=== PATIENT | male | born 1975 | race Caucasian/White ===

== ENCOUNTER 2020-10-06 08:01 | Emergency (ER) | payer OTHER ==
[~2020-10-06] VITALS: Ht 165.1 cm; Wt 72.7 kg
[2020-10-06 08:03] VITALS: BP 136/92
[2020-10-06] MEDS ORDERED: IBUPROFEN 600 MG TABLET PO ONE (08:45)
== END 2020-10-06 08:44 | disposition home or self-care (01) ==
LOC: EMS 08:04
DX: S46.811A Strain of other muscles, fascia and tendons at shoulder and upper arm level, right arm, initial encounter (principal); X50.0XXA Overexertion from strenuous movement or load, initial encounter; Y93.89 Activity, other specified; Y92.89 Other specified places as the place of occurrence of the external cause; Y99.0 Civilian activity done for income or pay
CPT/HCPCS: 99282; Z7502; Z7610

== ENCOUNTER 2020-10-13 15:21 | Emergency (ER) | payer OTHER ==
[~2020-10-13] VITALS: Ht 175.3 cm; Wt 75.0 kg
[2020-10-13 15:23] VITALS: BP 139/93
[2020-10-13] MEDS ORDERED: IBUPROFEN 800 MG TABLET PO ONE (16:00)
== END 2020-10-13 16:13 | disposition home or self-care (01) ==
LOC: EMS 15:23
DX: S46.911A Strain of unspecified muscle, fascia and tendon at shoulder and upper arm level, right arm, initial encounter (principal); X58.XXXA Exposure to other specified factors, initial encounter; Y93.89 Activity, other specified; Y92.89 Other specified places as the place of occurrence of the external cause; Y99.8 Other external cause status
CPT/HCPCS: 99282; Z7502; Z7610